=== PATIENT | male | born 1995 | race Caucasian/White ===

== ENCOUNTER 2017-04-30 05:00 | Inpatient (IN) | payer OTHER ==
--- NOTE | ~2017-04-30 | EKG ---
PATIENT: DANDRE SILVERIO UNIT #: [id number] Ventricular Rate: 58 BPM Atrial Rate: 58 BPM P-R Interval: 166 ms QRS Duration: 94 ms Q-T Interval: 428 ms QTC Calculation(Bezet): 420 ms P [place]: 54 degrees Calculated R [place]: 85 degrees Calculated T [place]: 73 degrees Diagnosis Line: Sinus bradycardia Diagnosis Line: Septal infarct , age undetermined Diagnosis Line: Abnormal ECG Diagnosis Line: No previous ECGs available Diagnosis Line: Confirmed by SAMANTHA FERRER MD ([id number]) on Diagnosis Line: 05/01/2017 11:07:01 AM INTERPRETING MD: NABIL SOTO
--- NOTE | ~2017-04-30 | HP ---
Unit #: [id number] #: [id number] Patient: DANDRE SILVERIO [id number] [place] [address] [id number] I MR#: [id number] NAME: DANDRE SILVERIO ROOM: [facility] Age: 22 Sex: M Admission Date: 04/30/2017 : 1995 Attending Physician: Kostas Mackenzie M.D. Admitting Physician: Kostas Mackenzie M.D. Primary Care Physician: [facility] HISTORY AND PHYSICAL HISTORY OF PRESENT ILLNESS The patient is a 22-year-old male who states he is here due to shooting heroin and here for detox. PAST MEDICAL HISTORY Significant for atrial fib and hep C for which he is receiving treatment for none of those. PAST SURGICAL HISTORY None. SOCIAL HISTORY Positive for smoking . ALLERGIES None. FAMILY HISTORY Noncontributory. REVIEW OF SYSTEMS CONSTITUTIONAL: No fever or chills. HEENT: Denies any sore throat, ear pain or runny nose. CARDIOVASCULAR: Denies chest pain, irregular heart rhythm or palpitations. CHEST: Denies shortness of breath or cough. No hemoptysis. GASTROINTESTINAL: Denies nausea, vomiting, diarrhea or chronic constipation. ENDOCRINE: Denies history of increased thirst or urination. No recent significant weight loss or gain. GENITOURINARY: Denies dysuria, frequency, or hematuria. SKIN: Denies any rashes. HEMATOLOGIC: Denies history of increased bleeding or bruising. MUSCULOSKELETAL: Denies any hot, swollen joints. No generalized muscle pain. NEUROLOGIC: Denies problems with vision or speech. No frequent, severe headaches. No numbness, tingling or weakness in any extremities. Denies loss of bladder or bowel control. CURRENT MEDICATIONS Ventolin inhaler Unit #: [id number] #: [id number] Patient: DANDRE SIVLERIO PHYSICAL EXAMINATION GENERAL: Alert, oriented in no acute distress. VITAL SIGNS: Temperature 97.6, heart rate 76, respirations 16, blood pressure 102/67. HEIGHT: 6 feet WEIGHT: 128 pounds SKIN: Warm and dry without rash. Scars to bilateral knees. Track [place] to the left upper arm. Tattoos to the midline chest. Multiple scars, scabs to the left AC as well. HEENT: Normocephalic. TMs not viewed. Oral and nasal passages clear. Conjunctivae clear. PERRLA. EOMs intact. NECK: Supple without lymphadenopathy or thyromegaly. HEART: Regular rate and rhythm without murmur. CARDIOPULMONARY: Multiple wheezes bilateral lungs. ABDOMEN: Soft, nontender, without masses or hepatosplenomegaly. : Not done. EXTREMITIES: No evidence of cyanosis, clubbing or edema. Moves all without focal deficit. NEUROLOGICAL: Grossly within normal limits. Cranial Nerves: II: Visual sandoval are intact. III, IV AND : Extraocular movements are intact. Pupils are equal, round and reactive to light. V: Facial sensation is grossly normal. VII: Facial movements and expression are normal. VIII: Auditory acuity grossly intact. IX, X: Uvula is midline. Phonation is normal. XI: Patient shrugs shoulders and turns head normally. XII: Tongue protrudes in the midline. Sensory and Motor Function: Sensory and motor sensation is grossly normal. Motor: moves all extremities well. Coordination: Gait is normal. Deep Tendon Reflexes: Intact. IMPRESSION Psychiatric admission. RECOMMENDATIONS Psychiatric, per psychiatrist. MEDICAL: I see no contraindications to participating in facility's activities. MEDICAL PROGNOSIS Good. Dictated by... Diana RuizPLydiaRMyles GREGORY/fred TD: 05/01/2017 03:01 JOB #: [id number] Unit #: [id number] #: [id number] Patient: DANDRE SILVERIO HISTORY AND PHYSICAL Page 1 of 1 X Jen Jorgensen APR X HISTORY AND PHYSICAL
--- NOTE | ~2017-04-30 | CO ---
Unit #: [id number] #: [id number] Patient: DANDRE SILVERIO [id number] [place] [address] [id number] MR#: [id number] NAME: DANDRE SILVERIO ROOM: [facility] Age: 22 Sex: M Admission Date: 04/30/2017 : 1995 Attending Physician: Kostas Mackenzie M.D. Primary Care Physician: [facility] Family Requesting Physician: Kostas Mackenzie M.D. CONSULTATION REPORT REASON FOR CONSULTATION Abnormal EKG SUBJECTIVE "I have periods of atrial fib that I don't take treatment for. It doesn't act up as long as I don't drink alcohol. I also have hepatitis C I am not taking treatment for that either. OBJECTIVE Vital signs within normal limits. EKG that shows possible septal infarct age undetermined. Regular rate rhythm. ASSESSMENT Essentially normal EKG and the patient with known history of atrial fib and no current complaints. PLAN Observation. Dictated by... Edwin Ruiz/fred TD: 05/01/2017 03:05 JOB #: [id number] CONSULTATION REPORT Page 1 of 1 X Jen Jorgensen APR X CONSULTATION REPORT
--- NOTE | ~2017-04-30 | PA ---
Unit #: [id number] #: [id number] Patient: DANDRE MUNOZ [id number] [facility] [address] [address] [place] [address] [id number] I MR#: [id number] NAME: DANDRE MUNOZ ROOM: [facility] Age: 22 Sex: M Admission Date: 04/30/2017 : 1995 Date of Assessment: 05/01/2017 Attending Physician: Kostas Mackenzie M.D. Admitting Physician: Kostas Mackenzie M.D. Primary Care Physician: [facility] Patients Family PSYCHIATRIC ASSESSMENT INFORMANT(S) Patient, reliable. [facility]. CHIEF COMPLAINT Heroin use. HISTORY OF PRESENT ILLNESS Mr. Munoz is a 22-year-old man, who presented complaining that he has been using increasing amounts of heroin, with inability to establish sobriety in the outpatient setting, and he has now progressed to the point where he is active detox symptomatology and he is admitted for stabilization. PAST PSYCHIATRIC HISTORY This is Mr. Munoz' first admission to our facility for chemical dependence treatment. He would like to go to intermediate designer care facility after discharge. FAMILY PSYCHIATRIC HISTORY None reported. SOCIAL HISTORY The patient is single and is erratically house, he is currently unemployed due to his ongoing difficulties with chemical dependence. MEDICAL HISTORY No chronic medical problems. MEDICATIONS None currently. ALLERGIES No known medication allergies. SUBSTANCE ABUSE HISTORY As noted above. MENTAL STATUS EXAM Dandre presented as a disheveled man who appeared his stated age. He is quiet and cooperative with the examination. His speech was soft but easily understood. His musculoskeletal examination was clam. His mood is anxious with a congruent affect. He was alert and fully oriented. His Unit #: [id number] #: [id number] Patient: DANDRE MUNOZ memory and concentration were intact. His thought processes were logical with no active psychosis. He denied suicidal ideation, intent, or plan. Insight and judgment were fair. Fund of knowledge and abstraction were fair. ASSETS The patient was youthful and volunteered for treatment and is willing to go onto chemical dependence rehab. LIABILITIES Difficulty establishing sobriety. ADMITTING DIAGNOSES Dunlow I: Opiate dependence withdrawal, complicated, F11.23. Dunlow II: No diagnosis. Dunlow III: Opiate withdrawal syndrome. Dunlow IV: Dunlow V: PSYCHIATRIC PLAN Dandre was admitted and placed in the opiate detox protocol. We will monitor for response and make additional medication changes as indicated. He will enroll in psychotherapy groups and attend a dual diagnosis focus. TREATMENT GOALS Resolution of intoxication, improvement in insight, and improvement in coping skills. DISCHARGE PLANNING Follow up with rehab facility of choice. ESTIMATED LENGTH OF STAY Five days. Dictated by... Kostas Mackenzie M.D. BETHEL/miguel TD: 05/03/2017 09:47 JOB #: [id number] PSYCHIATRIC ASSESSMENT Page 1 of 1 X Kostas Mackenzie MD X PSYCHIATRIC ASSESSMENT
--- NOTE | ~2017-04-30 | DS ---
Unit #: [id number] #: [id number] Patient: DANDRE SILVERIO [id number] [place] [address] [id number] I MR#: [id number] NAME: DANDRE SILVERIO ROOM: [facility] Age: 22 Sex: M Admission Date: 04/30/2017 : 1995 Discharge Date: 05/03/2017 Attending Physician: Kostas Mackenzie M.D. Primary Care Physician: -Merged With [facility] DISCHARGE SUMMARY REASON FOR ADMISSION Dandre is a 22-year-old man, who presented reporting using increasing amounts of heroin with active detox symptomatology and also depression with thoughts of suicide. He was unable to contract for safety and was admitted for stabilization. LABORATORY DATA Please see hospital chart. HOSPITAL COURSE Dandre was admitted and placed on the opioid detox protocol. He declined initiation of an antidepressant medication despite his depressive symptoms, but expressed that his suicidal ideation had gotten better after admission to the hospital. He was cooperative with groups and activities and made good progress toward discharge planning with his social media manager. On the date of discharge, he was able to contract for safety. DISCHARGE DIAGNOSES AXIS I: Opioid dependence with substance-induced mood disorder, F11.24. AXIS II: No diagnosis. AXIS III: Opioid withdrawal syndrome. AXIS IV: AXIS V: DISCHARGE INSTRUCTIONS Follow up with chemical dependency programming in the community and further consideration of mental health care. DISCHARGE MEDICATIONS Albuterol inhaler one puff every 4 hours as needed for shortness of air. CONDITION AT DISCHARGE Improved. PROGNOSIS Fair to good. DIET AND ACTIVITY Per primary care doctor. Dictated by... Unit #: [id number] #: [id number] Patient: DANDRE SILVERIO Kostas Mackenzie M.D. [facility]/adonay TD: 05/13/2017 02:14 JOB #: [id number] DISCHARGE SUMMARY Page 1 of 1 X Kostas Mackenzie MD X DISCHARGE SUMMARY
--- NOTE | ~2017-04-30 | A ---
[facility] Nutrition Therapy DATE: 05/01/17 Patient: DANDRE HOBBSLOAN Physician: HARMIC Address: [address] [place] [address] Room/Bed: [address], Zip: [place] [address] Admit Date: 04/30/17 Date of : [birth year] Height: 6 0 Weight: [phone] NUTRITIONAL ASSESSMENT: REASON: LOW BMI (17.4) PATIENT ADMITTED FOR HEROIN DETOX AND SI PMH: A-FIB, HEP C, GERD, ASTHMA Anthropometrics: HT: 72", WT: 128#, BMI: 17.4, %IBW: 72 Labs: 05/01/17- NA: 133 Meds: DESYREL, DETOX PROTOCOL, MVI Assessment: PATIENT IS A 22 Y/O MALE ADMITTED FOR HEROIN DETOX AND SI. PATIENT IS CURRENTLY UNEMPLOYED, LIVES WITH HIS MOTHER, SMOKES 1 PPD, HAS DAILY HEROIN USE AND FREQUENT AMPHETAMINE USE. UPON ADMIT PATIENT STATED A GOOD APPETITE WITH A 20# WEIGHT LOSS OVER LAST SEVERAL MONTHS. CURRENT PO INTAKES ARE NOT AVAILABLE D/T PATIENT RECENTLY ADMITTED. PATIENT DID NOT SCORE ANY NUTRITIONAL RISK POINTS. THERE IS NO SKIN BREAKDOWN NOTED ATT. PATIENT IS ON A REGULAR DIET. Dx: INADEQUATE NUTRIENT INTAKE R/T CURRENT CONDITIONS, DRUG USE AEB SELF-REPORTED WEIGHT LOSS, LOW BMI, <90% IBW Intervention: REGULAR DIET, LARGE PORTIONS, MEDS PER MD, DETOX, PSYCH Monitoring, Evaluation and Goals: 1. ADEQUATE PO INTAKES >50% OF MEALS 2. PREVENT, CORRECT MICRO/MACRO NUTRIENT DEFICIENCIES 3. PROMOTE A STEADY WEIGHT GAIN TOWARDS A HEALTHY BMI OF 19-25, PREVENT FURTHER WEIGHT LOSS MONITOR: WEIGHTS, LABS, PO/FLUID INTAKES Recommendations: 1. CONTINUE REGULAR DIET TOLERATED. OFFER SNACKS BETWEEN MEALS. INCREASE ENTREES TO LARGE PORTIONS 2. ENCOURAGE ADEQUATE PO AND FLUID INTAKES 3. IF PO INTAKES FALL BELOW 50% OF MEALS PLEASE ORDER ENSURE BID TO PROMOTE ADEQUATE KCAL AND PROTEIN INTAKES [facility] Therapy DATE: 05/01/17 Patient: DANDRE HOBBSLOAN Physician: BRADLEY Address: [address] [place] [address] Room/Bed: [address], Zip: [place] [address] Admit Date: 04/30/17 Date of : [birth year] Height: 6 0 Weight: [phone] TO F/U PER PROTOCOL AND PRN R/T PATIENT MILDLY COMPROMISED Respectfully, RHINA GUERRA, RD, LD [facility] cc: client file
[2017-05-01 09:45] LABS: BASOPHIL# 0.1 X10e3 (0-0.3); BASOPHIL% 0.7 % (0-2.5); EOSINOPHIL# 0.8 X10e3 (0-0.7); EOSINOPHIL% 8.6 % (0.0-7.0); HEMATOCRIT 48.6 % (38.0-50.0); LYMPHOCYTE# 3.7 X10e3 (1.0-3.5); LYMPHOCYTE% 40.5 % (17.0-45.0); MEAN CELL VOLUME 90.5 FL (83-96); MEAN CORPUSCULAR HEMOGLOBIN 29.8 PG (28-34); MEAN PLATELET VOLUME 10.3 FL (6.5-11.5); MONOCYTE# 0.6 X10e3 (0-1.0); MONOCYTE% 6.1 % (3.0-12.0); NEUTROPHIL% 44.1 % (40-75); PLATELET COUNT 180 X10e3 (140-420); RED BLOOD COUNT 5.38 X10e (3.90-5.60); WHITE BLOOD COUNT 9.1 X10e3 (4.0-10.5)
[2017-05-01 10:02] LABS: ALBUMIN SERUM 3.5 g/dL (3.5-5.0); CALCIUM SERUM 8.5 mg/dL (8.4-10.2); CREATININE SERUM 0.8 mg/dL (0.6-1.4); DIFF IND NO; POTASSIUM 3.8 mmol/L (3.5-5.1); PROTEIN TOTAL SERUM 6.4 g/dL (6.0-8.3)
[2017-05-03 09:49] LABS: URINE APPEARANCE CLEAR; URINE BILIRUBIN NEG (NEG); URINE BLOOD NEG (NEG); URINE COLOR YELLOW; URINE GLUCOSE NEG (NEG); URINE KETONE NEG (NEG); URINE LEUKOCYTE ESTERASE NEG (NEG); URINE NITRATE NEG (NEG); URINE PROTEIN NEG (NEG); URINE SPECIFIC GRAVITY 1.015 (1.003-1.035); URINE UROBILINOGEN 0.2 MG/DL (NEG)
[2017-05-03 10:50] LABS: AMPHETAMINE NEG (NEG); BARBITURATES NEG (NEG); BENZODIAZEPINES NEG (NEG); COCAINE NEG (NEG); MARIJUANA NEG (NEG); OPIATES NEG (NEG); TRICYCLIC ANTIDEPRESSANTS NEG (NEG); U METHADONE NEG (NEG)
== END 2017-05-03 12:10 | disposition home or self-care (01) | DRG 897 ==
LOC: P1E 06:44
PROVIDERS: Psychiatry & Neurology Psychiatry
PROC: HZ2ZZZZ Detoxification Services for Substance Abuse Treatment (ICD-10-PCS; principal; 2017-04-30)
DX: F11.23 Opioid dependence with withdrawal (principal); I48.91 Unspecified atrial fibrillation
CPT/HCPCS: 80053; 80307; 81003; 82947; 85025; 86592; 93005